=== PATIENT | male | born 1995 | race Two or more races ===

== ENCOUNTER 2021-08-17 14:54 | Outpatient (REF) | payer OTHER, SELFPAY ==
--- NOTE | ~2021-08-17 | MR_ITS ---
EXAMINATION: MR LUMBAR SPINE WITHOUT AND WITH CONTRAST CLINICAL INFORMATION: Low back pain. Buttocks pain. Left leg pain. COMPARISON: None TECHNIQUE: MRI of the lumbar spine was obtained using routine sequences with and without contrast. Intravenous contrast: Gadavist 8 mL FINDINGS: At the L5-S1 level, there is mild disc degeneration and a shallow, broad-based central disc protrusion mildly impressing upon both S1 nerve roots. No central canal stenosis or significant foraminal narrowing is otherwise seen. The remaining discs are well-hydrated and normal in appearance without central canal stenosis or foraminal encroachment. Mild facet arthropathy noted at the L3-L4 and L4-L5 levels. There is no pathologic enhancement on postcontrast imaging. The distal cord, conus tip, and cauda equina nerve roots are normal. There is no thickening or fatty infiltration of the filum terminale. The paraspinal soft tissues are normal. The imaged bony pelvis is unremarkable. Small 1.5 cm right renal cyst incidentally noted. MR/MR lumbar spine wo/w con IMPRESSION: Mild disc degeneration and shallow, broad-based central disc protrusion at the L5-S1 level resulting in mild mass effect upon both S1 nerve roots.
== END 2021-08-17 14:55 | disposition home or self-care (01) ==
LOC: HO.MRI 14:54
PROVIDERS: PCP Internal Medicine; Visit Provider Internal Medicine
DX: G83.4 Cauda equina syndrome (principal)
CPT/HCPCS: 72158; A9585

== ENCOUNTER 2021-08-19 14:39 | Outpatient (REF) | payer OTHER, SELFPAY ==
[2021-08-19 15:22] LABS: Rheumatoid Factor < 15.0 IU/mL (<15.0)
[2021-08-19 15:49] LABS: Erythrocyte Sedimentation Rate 6 MM/HR (0-15)
[2021-08-20 04:57] LABS: Lyme Abs Screen <0.90 index
[2021-08-20 12:57] LABS: Anti Nuclear Antibody Screen NEGATIVE (NEGATIVE)
== END 2021-08-19 14:40 | disposition home or self-care (01) ==
LOC: HO.LAB 14:39
PROVIDERS: PCP Internal Medicine; Visit Provider Psychiatry & Neurology Neurology
DX: M54.9 Dorsalgia, unspecified (principal)
CPT/HCPCS: 36415; 82550; 85652; 86038; 86039; 86431; 86617; 86618